=== PATIENT | female | born 1925 | race Caucasian/White ===

== ENCOUNTER 2016-09-11 18:29 | Inpatient (IN) | payer MEDICARE, BC ==
[~2016-09-11] VITALS: Ht 154.9 cm; Wt 54.0 kg
[~2016-09-11 18:29] MED LIST: ZYRTEC10 MG GT
[2016-09-11 19:59] LABS: HEMOGLOBIN 9.6 gm/dl (12.3-15.3); RED BLOOD COUNT 3.19 M/UL (4.00-5.10); WHITE BLOOD COUNT 20.2 K/UL (4.5-11.0)
[2016-09-12 10:15] LABS: ACINETOBACTER BAUMANNII Not Detected (Negative); CANDIDA ALBICANS Not Detected (Negative); CANDIDA KRUSEI Not Detected (Negative); CANDIDA TROPICALIS Not Detected (Negative); ESCHERICHIA COLI Not Detected (Negative); HAEMOPHILUS INFLUENZAE Not Detected (Negative); KLEBSIELLA OXYTOCA Not Detected (Negative); KLEBSIELLA PNEUMONIAE Not Detected (Negative); KPC-CARBAPENEM-RESISTANCE GENE Not Detected (Negative); PROTEUS Not Detected (Negative); PSEUDOMONAS AERUGINOSA Not Detected (Negative); SERRATIA MARCESANS Not Detected (Negative); STAPHYLOCOCCUS Not Detected (Negative); STAPHYLOCOCCUS AUREUS Not Detected (Negative); STREP AGALACTIAE (GROUP B) Not Detected (Negative); STREP PYOGENES (GROUP A) Not Detected (Negative); STREPTOCOCCUS Not Detected (Negative); mecA (METHICILLIN RESIST GENE Not Detected (Negative); vanA/B (VANCOMYCIN RESIST GENE Not Detected (Negative)
[2016-09-12 10:35] LABS: HEMOGLOBIN 8.8 gm/dl (12.3-15.3); RED BLOOD COUNT 2.9 M/UL (4.00-5.10); WHITE BLOOD COUNT 21.7 K/UL (4.5-11.0)
[2016-09-12 11:58] LABS: ENTEROCOCCUS DETECTED (Negative)
[2016-09-12] MEDS ORDERED: TOPROL XL 50 MG50 MG GT (13:55)
[2016-09-12] MEDS ORDERED: ZANTAC 150 MG150 MG GT (13:56)
[2016-09-12] MEDS ORDERED: IRON325 M1 GT (13:58)
[2016-09-12] MEDS ORDERED: ERYPED 400400 MG/5 M GT (13:58)
[2016-09-12] MEDS ORDERED: CARAFATE SU100 MG/ML GT (13:59)
[2016-09-13 06:03] LABS: RED BLOOD COUNT 2.67 M/UL (4.00-5.10)
[2016-09-14 05:26] LABS: HEMOGLOBIN 7.7 gm/dl (12.3-15.3); RED BLOOD COUNT 2.57 M/UL (4.00-5.10); WHITE BLOOD COUNT 12.9 K/UL (4.5-11.0)
[2016-09-14 05:56] LABS: BUN/CREATININE RATIO 18 (0-10)
[2016-09-14 16:22] LABS: HEMOGLOBIN 9.2 gm/dl (12.3-15.3)
[2016-09-14 19:13] LABS: BUN/CREATININE RATIO 19 (0-10)
[2016-09-15 05:22] LABS: HEMOGLOBIN 8.8 gm/dl (12.3-15.3); WHITE BLOOD COUNT 9.8 K/UL (4.5-11.0)
[2016-09-15 05:23] LABS: RED BLOOD COUNT 3.03 M/UL (4.00-5.10)
[2016-09-15 06:49] LABS: BUN/CREATININE RATIO 20 (0-10)
[2016-09-16 05:02] LABS: HEMOGLOBIN 9.3 gm/dl (12.3-15.3); RED BLOOD COUNT 3.12 M/UL (4.00-5.10); WHITE BLOOD COUNT 10.6 K/UL (4.5-11.0)
[2016-09-16 05:14] LABS: BUN/CREATININE RATIO 22 (0-10)
[2016-09-17 05:39] LABS: RED BLOOD COUNT 3.03 M/UL (4.00-5.10); WHITE BLOOD COUNT 10.7 K/UL (4.5-11.0)
[2016-09-17 06:01] LABS: BUN/CREATININE RATIO 20 (0-10)
[2016-09-18 05:21] LABS: RED BLOOD COUNT 3.06 M/UL (4.00-5.10); WHITE BLOOD COUNT 9.1 K/UL (4.5-11.0)
[2016-09-18 05:45] LABS: BUN/CREATININE RATIO 25 (0-10)
[2016-09-18 09:17] LABS: ACINETOBACTER BAUMANNII Not Detected (Negative); CANDIDA ALBICANS Not Detected (Negative); CANDIDA KRUSEI Not Detected (Negative); CANDIDA TROPICALIS Not Detected (Negative); ENTEROCOCCUS Not Detected (Negative); ESCHERICHIA COLI Not Detected (Negative); HAEMOPHILUS INFLUENZAE Not Detected (Negative); KLEBSIELLA OXYTOCA Not Detected (Negative); KLEBSIELLA PNEUMONIAE Not Detected (Negative); KPC-CARBAPENEM-RESISTANCE GENE Not Detected (Negative); PROTEUS Not Detected (Negative); PSEUDOMONAS AERUGINOSA Not Detected (Negative); SERRATIA MARCESANS Not Detected (Negative); STAPHYLOCOCCUS Not Detected (Negative); STAPHYLOCOCCUS AUREUS Not Detected (Negative); STREP AGALACTIAE (GROUP B) Not Detected (Negative); STREP PYOGENES (GROUP A) Not Detected (Negative); STREPTOCOCCUS Not Detected (Negative); mecA (METHICILLIN RESIST GENE Not Detected (Negative); vanA/B (VANCOMYCIN RESIST GENE Not Detected (Negative)
[2016-09-19 06:18] LABS: BUN/CREATININE RATIO 23 (0-10)
[2016-09-19] MEDS ORDERED: VANCOCIN 125MG/2.5ML IV (14:16)
== END 2016-09-19 14:47 | disposition home health service (06) | DRG 698 ==
LOC: ER1 18:29 → PROG CARE 22:37 → ZEROF 22:37 → PROG CARE 09-12 11:43
PROVIDERS: Family Medicine; Internal Medicine; Internal Medicine Nephrology; ADMIT Family Medicine
PROC: 0D20XUZ Change Feeding Device in Upper Intestinal Tract, External Approach (ICD-10-PCS; principal; 2016-09-17)
DX: T83.511A Infection and inflammatory reaction due to indwelling urethral catheter, initial encounter (principal); A41.81 Sepsis due to Enterococcus; J69.0 Pneumonitis due to inhalation of food and vomit; J96.01 Acute respiratory failure with hypoxia; N30.00 Acute cystitis without hematuria; E87.1 Hypo-osmolality and hyponatremia; E87.2 Acidosis; K94.23 Gastrostomy malfunction; R47.01 Aphasia; K31.1 Adult hypertrophic pyloric stenosis; M62.838 Other muscle spasm; R11.10 Vomiting, unspecified; B96.89 Other specified bacterial agents as the cause of diseases classified elsewhere; G30.9 Alzheimer's disease, unspecified; F02.80 Dementia in other diseases classified elsewhere, unspecified severity, without behavioral disturbance, psychotic disturbance, mood disturbance, and anxiety; N18.3 Chronic kidney disease, stage 3 (moderate); Z74.01 Bed confinement status; Z66 Do not resuscitate; E78.5 Hyperlipidemia, unspecified; M19.90 Unspecified osteoarthritis, unspecified site; Z87.19 Personal history of other diseases of the digestive system; D50.9 Iron deficiency anemia, unspecified; Z87.11 Personal history of peptic ulcer disease; Z98.890 Other specified postprocedural states; Z79.899 Other long term (current) drug therapy; Z88.0 Allergy status to penicillin; I44.7 Left bundle-branch block, unspecified; K22.2 Esophageal obstruction; Z87.440 Personal history of urinary (tract) infections
CPT/HCPCS: ECHO; 36415; 71010; 80048; 80053; 80202; 81001; 82436; 82533; 82550; 82553; 82803; 82962; 83605; 83874; 83935; 84133; 84295; 84300; 84443; 84484; 85014; 85018; 85025; 85027; 86850; 86900; 86901; 86920; 87040; 87070; 87077; 87086; 87150; 87186; 87205; 93005; 93306; 94640; 96361; 96365; 96366; 96375; 99285; C9113; J1335; J1956; J2405; J3370; J3480; J7030; J7040; J7050; J7070; P9016

== ENCOUNTER → 2016-10-04 | Outpatient (CLI) | payer MEDICARE, BC ==
[~2016-10-04] MED LIST changes: +CARAFATE SU100 MG/ML GT; +ERYPED 400400 MG/5 M GT; +IPRAT-ALBUT 0.5-3 ML INH; +IRON325 M1 GT; +METOPROLOL TART25 MG PO; +MUCOMYST 10% INH; +TOPROL XL 50 MG50 MG GT; +TYLENOL 650 MG650 MG GT; +VANCOCIN 125MG/2.5ML IV; +ZANTAC 150 MG150 MG GT
== END ==
LOC: HH 14:09
DX: N39.0 Urinary tract infection, site not specified (principal); J15.9 Unspecified bacterial pneumonia
CPT/HCPCS: 80202

== ENCOUNTER 2016-10-21 17:15 | Inpatient (IN) | payer MEDICARE, BC ==
[~2016-10-21] VITALS: Ht 152.4 cm; Wt 51.3 kg
[~2016-10-21 17:15] MED LIST changes: -IPRAT-ALBUT 0.5-3 ML INH; -METOPROLOL TART25 MG PO; -MUCOMYST 10% INH; -TYLENOL 650 MG650 MG GT
[2016-10-21] MEDS ORDERED: TYLENOL 650 MG650 MG GT (18:01)
[2016-10-21 18:31] LABS: HEMOGLOBIN 9.7 gm/dl (12.3-15.3); RED BLOOD COUNT 3.21 M/UL (4.00-5.10); WHITE BLOOD COUNT 9.3 K/UL (4.5-11.0)
[2016-10-23 03:40] LABS: HEMOGLOBIN 9.9 gm/dl (12.3-15.3); RED BLOOD COUNT 3.21 M/UL (4.00-5.10); WHITE BLOOD COUNT 8.8 K/UL (4.5-11.0)
[2016-10-24 05:19] LABS: HEMOGLOBIN 8.9 gm/dl (12.3-15.3); RED BLOOD COUNT 2.95 M/UL (4.00-5.10); WHITE BLOOD COUNT 9.4 K/UL (4.5-11.0)
[2016-10-24] MEDS ORDERED: MUCOMYST 10% INH (10:06)
[2016-10-24] MEDS ORDERED: IPRAT-ALBUT 0.5-3 ML INH (10:07)
[2016-10-24] MEDS ORDERED: METOPROLOL TART25 MG PO (12:02)
== END 2016-10-24 14:28 | disposition home health service (06) | DRG 315 ==
LOC: PROG CARE 17:15
PROVIDERS: Surgery; ADMIT Internal Medicine
PROC: B544ZZA Ultrasonography of Left Jugular Veins, Guidance (ICD-10-PCS; 2016-10-23)
PROC: 05HN33Z Insertion of Infusion Device into Left Internal Jugular Vein, Percutaneous Approach (ICD-10-PCS; principal; 2016-10-23 13:15)
DX: T82.7XXA Infection and inflammatory reaction due to other cardiac and vascular devices, implants and grafts, initial encounter (principal); R78.81 Bacteremia; R09.01 Asphyxia; R47.01 Aphasia; G30.9 Alzheimer's disease, unspecified; F02.80 Dementia in other diseases classified elsewhere, unspecified severity, without behavioral disturbance, psychotic disturbance, mood disturbance, and anxiety; R09.02 Hypoxemia; R06.81 Apnea, not elsewhere classified; Z93.1 Gastrostomy status; Z79.899 Other long term (current) drug therapy; Z74.01 Bed confinement status; Z66 Do not resuscitate; M19.90 Unspecified osteoarthritis, unspecified site; E78.5 Hyperlipidemia, unspecified; D50.9 Iron deficiency anemia, unspecified; Z98.890 Other specified postprocedural states; Z88.0 Allergy status to penicillin; I87.2 Venous insufficiency (chronic) (peripheral); M62.3 Immobility syndrome (paraplegic)
CPT/HCPCS: 36415; 71010; 77001; 80048; 80202; 85025; 85027; 87040; 94640; 94664; C1769; C1788; G0378; G0379; J1642; J1644; J1650; J2250; J3370; J7030; J7070; J7120